=== PATIENT | male | born 1995 | race Caucasian/White ===

== ENCOUNTER 2018-01-08 07:15 | Emergency (ER) | payer OTHER ==
[~2018-01-08] VITALS: Ht 180.3 cm; Wt 74.5 kg
[2018-01-08 07:19] VITALS: BP 117/75; PULSE 97; TEMP 36.4; O2SAT 96; Ht 180.3 cm; Wt 74.5 kg
--- NOTE | 2018-01-08 07:33 | EMERGENCY ROOM VISIT NOTE ---
ED Visit Note First contact with patient: 07:23 Chief Complaint: "cut finger" History of Present Illness: This patient is a 22-year-old male who presents to the Emergency Department [facility] for evaluation of their left first MCP joint skin laceration. Patient sustained the laceration this evening but is unsure how it happened, rather he notes that he was drinking and just noticed it. They report a minimal amount of bleeding initially. They deny any numbness or tingling into the distal extremity. They report no decreased range of motion of the affected digit. Patient rates no current discomfort as a 0/10. Patient' s Tetanus status is currently up-to-date. Medications: As noted below Allergies: None noted PMH: No significant SHx: Patient is a student and lives locally ROS: All pertinent positive and negative review of systems are appropriately documented in the History of Present Illness. Physical Exam: VITAL SIGNS - Vital signs and nursing notes were reviewed. Stable GENERAL -22-year-old male appearing his stated age who is in no acute distress. Communicates well with provider and answers questions appropriately. SKIN - There is a 0.75 cm long laceration/abrasion noted on the skin overlying the dorsal aspect of the left first MCP joint. The edges do not gape apart with traction. No foreign bodies appreciated. Upon further examination there are no deep structures including vessel, tendon, or bony structures appreciated. There is no active bleeding noted. MUSCULOSKELETAL - Laceration as described above. +5/5 strength appreciated of the affected digit. Full range of motion of the affected digit. No tenderness around the laceration. He is neurovascularly intact distal to the laceration. No abnormalities other than the small abrasion/laceration. NEUROLOGIC - Spinothalamic tract was found to be intact with ability to discriminate sharp versus dull sensation. No sensory defects of the dorsal column were appreciated utilizing light touch for evaluation. VASCULAR - Capillary refill was brisk. ED Course: Patient was seen and evaluated by myself. Risks and benefits of performing primary wound closure versus no repair were discussed with the patient who verbalizes understanding. Verbal consent was obtained prior to performing the procedure. I did recommend x-ray secondary to the unknown etiology of this in the event that could be traumatic related. Patient notes that because he can fully move his hand he does not think that is necessary. I believe that anesthetization would cause more harm and pain rather than just cleaning the wound and Dermabond. The wound was cleansed and prepped in the typical sterile fashion utilizing normal saline and Betadine. The wound was further examined and demonstrated no deep involvement. The wound was copiously irrigated with normal saline and Betadine. The wound was closed using Dermabond with the wound edges being well approximated. Patient tolerated the procedure well. No complications were met. Patient educated on worrisome symptoms for return visit to the Emergency Department. Patient discharged to home in good condition. In the evaluation and treatment of this patient, the following differential diagnoses were considered: Finger Fracture, Finger Dislocation, Finger Sprain, Finger Contusion, Jersey Finger, or Mallet Finger. Current/Historical Medications No Active Prescriptions or Reported Meds Allergies Coded Allergies: No Known Allergies (Unverified , 01/08/18) Vital Signs Date Time Temp Pulse Resp B/P (MAP) Pulse Ox O2 Delivery O2 Flow Rate FiO2 01/08/18 07:19 36.4 97 20 117/75 96 Room Air Departure Information Impression Primary Impression: Laceration Dispostion Home / Self-Care Condition GOOD Prescriptions No Active Prescriptions or Reported Meds Referrals No Doctor, Assigned (PCP) Patient Instructions [facility] Additional Instructions Discharge Instructions: You have received medical grade glue on your hand. This will dissolve on its own. I recommend wearing the finger splint for the next few days. If pain persists an x-ray is warranted. Gentle handwashing is okay. Please do not submerge your hand in water for 3 days. Look for signs of infection of the wound including: increased pain, swelling, foul discharge, streaking, or increased temperature. If any of these are noticed you should return to the Emergency Department for further assessment and treatment. As with any laceration you may have received nerve damage to the surrounding tissues. This damage may or may not be permanent. You should keep the area covered with sunscreen for the first 6 months to 1 year when at risk for exposure to help minimize scarring. You can also use scar reducing creams or Vitamin E oil to help minimize scarring. For pain control, you can use the following [id number] medicines: - Regular strength (325mg/tab) Tylenol (acetaminophen) 2 tabs every 4-6 hours as needed. Do not exceed 12 tablets in a 24 hour period. Avoid taking more than 3 grams (3000 mg) of Tylenol per day. This includes any other sources of acetaminophen you may take on a regular basis. - Regular strength (200 mg/tab) Advil (ibuprofen) 1-2 tabs every 4-6 hours as needed. Do not exceed a dose of 3200 mg per day. Return to the emergency department if your symptoms worsen despite treatment course outlined above.
== END 2018-01-08 08:12 | disposition home or self-care (01) ==
LOC: C.EDB 07:16 → C.EDA 08:12
DX: S61.012A Laceration without foreign body of left thumb without damage to nail, initial encounter (principal); S60.312A Abrasion of left thumb, initial encounter; X58.XXXA Exposure to other specified factors, initial encounter

== ENCOUNTER 2018-06-03 19:42 | Emergency (ER) | payer OTHER ==
[~2018-06-03] VITALS: Ht 180.3 cm; Wt 72.4 kg
[2018-06-03 19:48] VITALS: TEMP 36.6; Ht 180.3 cm; Wt 72.4 kg
--- NOTE | 2018-06-03 21:30 | DIAGNOSTIC IMAGING REPORT ---
ULTRASOUND OF THE RIGHT FIFTH TOE NONVASCULAR CLINICAL HISTORY: Foreign body assessment. COMPARISON STUDY: No priors. FINDINGS: Real-time, grayscale, and color flow sonography of the plantar soft tissues of the fifth toe is performed at the indicated site of interest. There is no sonographic evidence of foreign body identified. No soft tissue edema or collection is seen. IMPRESSION: There is no sonographic evidence of foreign body identified along the plantar aspect of the fifth toe as clinically queried. Electronically signed by: Jovany Shaw M.D. 06/03/2018 9:29 PM Dictated Date/Time: 06/03/2018 9:28 PM
[2018-06-03 21:46] VITALS: BP 116/65; PULSE 85; O2SAT 99
--- NOTE | 2018-06-03 23:09 | EMERGENCY ROOM VISIT NOTE ---
History First contact with patient: 19:50 Chief Complaint: FOOT PAIN Stated Complaint: FOOT PAIN History of Present Illness The patient is a 23 year old male who presents to the Emergency Room with complaints of a possible foreign body in the right foot. The patient reports that he has had discomfort for 6 days. He does not know what could potentially be in the wound. It hurts in one place, and does not extend into the middle of the sole or into the toes. He denies any paresthesias or numbness. Tetanus immunization is up-to-date. Review of Systems 10 system review was performed and was negative except for pertinent positives and negatives as indicated in history of present illness Past Medical/Surgical History Medical Problems: (1) No significant past medical history Surgical Problems: (1) No history of previous surgery Family History Unremarkable Social History Smoking Status: Current Some Day Smoker Alcohol Use: none Marital Status: single Occupation Status: [employer] student Current/Historical Medications No Active Prescriptions or Reported Meds Physical Exam Vital Signs Date Time Temp Pulse Resp B/P (MAP) Pulse Ox O2 Delivery O2 Flow Rate FiO2 06/03/18 21:46 85 18 116/65 99 06/03/18 19:48 36.6 86 20 125/86 94 Room Air Physical Exam CONSTITUTIONAL: Healthy and well nourished. Alert and oriented X 3 with positive affect. MUSCULOSKELETAL: Examination of the right foot shows a very small and potential puncture wound over the plantar fifth metatarsal region. Close exam with an otoscope does not show any obvious track into the deeper tissue. Trans- luminescence does not show any shadowing or obvious foreign body. The area is relatively nontender to palpation. No erythema noted. INTEGUMENTARY: No rash or other significant dermatologic conditions noted. NEUROLOGIC: Right foot and toes are sensory intact. Medical Decision & Procedures ER Provider Diagnostic Interpretation: Local ultrasound of the foot does not show any obvious foreign body or fluid collection. Radiologist report is as follows: ULTRASOUND OF THE RIGHT FIFTH TOE NONVASCULAR CLINICAL HISTORY: Foreign body assessment. COMPARISON STUDY: No priors. FINDINGS: Real-time, grayscale, and color flow sonography of the plantar soft tissues of the fifth toe is performed at the indicated site of interest. There is no sonographic evidence of foreign body identified. No soft tissue edema or collection is seen. IMPRESSION: There is no sonographic evidence of foreign body identified along the plantar aspect of the fifth toe as clinically queried. ED Course Patient history and physical exam were performed. Nurse's notes were reviewed. Vital signs were reviewed and were normal. Ultrasound of the foot does not show any obvious underlying foreign body. The patient was encouraged to limit weightbearing until symptoms improve. He was instructed to watch for any signs of developing infection, and return to the emergency department, or follow-up with [facility] as needed. The patient voiced understanding of all discharge instructions, and was happy with plan of care. Medical Decision Blood Pressure Screening Patient's blood pressure: Normal blood pressure Impression Primary Impression: Puncture wound of right foot Departure Information Prescriptions No Active Prescriptions or Reported Meds Referrals No Doctor, Assigned (PCP) Patient Instructions [facility] Problem Qualifiers Primary Impression: Puncture wound of right foot Encounter type: initial encounter Qualified Codes: S91.331A - Puncture wound without foreign body, right foot, initial encounter
== END 2018-06-03 21:43 | disposition home or self-care (01) ==
LOC: C.EDB 19:44 → C.EDC 21:43
DX: S91.331A Puncture wound without foreign body, right foot, initial encounter (principal); X58.XXXA Exposure to other specified factors, initial encounter; F17.200 Nicotine dependence, unspecified, uncomplicated